=== PATIENT | female | born 1940 | race Caucasian/White ===

== ENCOUNTER 2021-05-11 19:02 | Emergency (ER) | payer MEDICARE, OTHER, SELFPAY ==
[2021-05-11 19:04] VITALS: BP 153/78; PULSE 78; RESP 14; TEMP 36.7; O2SAT 99; BMI 40.5
[2021-05-11 19:06] VITALS: O2SAT 98
--- NOTE | 2021-05-11 19:19 | ED.VIS.DYS ---
HPI History of Present Illness Chief Complaint: Shortness of Breath Narrative Narrative: 81-year-old female presenting with a cough which lasted about 10 minutes and resolved. Patient denies that she choked on anything. She has not had fever, chills, body aches. She feels otherwise well. She felt well prior to the incident. She states she does not have any respiratory issues. She currently denies any chest pain or shortness of breath. PFSH PFSH Home Medications amlodipine 5 mg PO DAILY 06/20/16 [History Last Taken 06/20/16 07:00] aspirin [Adult Low Dose Aspirin EC] 81 mg PO DAILY 06/20/16 [History Last Taken Unknown] atorvastatin [Lipitor] 40 mg PO DAILY 06/20/16 [History Last Taken Unknown] gabapentin 200 mg PO TIDCM 06/20/16 [History Last Taken Unknown] lisinopril 20 mg PO DAILY 06/20/16 [History Last Taken 06/20/16 07:00] metformin 1,000 mg PO BIDCM 06/20/16 [History Last Taken Unknown] cghqyxzg-hsm-swbx fum-folic ac 1 ea PO DAILY 06/20/16 [History Last Taken Unknown] omeprazole 20 mg PO DAILY 06/20/16 [History Last Taken 06/20/16 07:00] oxycodone 5 mg PO Q4H PRN PRN #30 tablet 06/20/16 [Rx Last Taken Unknown] ursodiol 250 mg PO TID 06/20/16 [History Last Taken Unknown] Allergy/AdvReac Type Severity Reaction Status Date / Time acetaminophen [From Vicodin] Allergy Unknown Verified 05/11/21 19:04 hydrocodone [From Vicodin] Allergy Unknown Verified 05/11/21 19:04 sulfamethoxazole Allergy Unknown Verified 05/11/21 19:04 [From Bactrim] trimethoprim [From Bactrim] Allergy Unknown Verified 05/11/21 19:04 Social History Smoking Status: Never smoker ROS ROS ED Constitutional Constitutional ED: Denies chills, fever(s) or sweats Eyes Eyes: Denies blurry vision or change in vision ENT ENT ED: Denies ear pain or sore throat Cardiovascular Cardiovascular: Denies chest pain, palpitations or racing heartbeat Respiratory/Chest Respiratory/Chest: Reports cough and dyspnea; Denies sputum Gastrointestinal Gastrointestinal: Denies abdominal pain, constipation, diarrhea, nausea or vomiting Genitourinary Genitourinary ED: Denies dysuria, hematuria or urinary frequency Musculoskeletal Musculoskeletal: Denies arthralgias, myalgias or neck pain Integumentary Denies abscess, Abrasions or rash Neurologic Neurologic: Denies headache(s), paresthesias or weakness Psychiatric Psychiatric: Denies anxiety, depression, suicidal ideation or suicidal thoughts Endocrine Endocrinology: Denies polydipsia or polyuria EXAM Physical Exam Const Vital Signs: 05/11/21 19:04 05/11/21 19:06 Temperature 98.1 F Temperature Source Temporal Pulse Rate 78 Respiratory Rate 14 Respiratory Effort Normal Non-Labored Respiratory Depth Normal Respiratory Pattern Normal Blood Pressure 153/78 H Blood Pressure Mean 103 Pulse Ox 99 Oxygen Delivery Method Room Air Room Air Positive well nourished General Appearance ED: NAD; Negative for pallor HEENT Reports moist mucous membranes atraumatic Eyes PERRL and EOMs intact bilaterally Neck Neck Narrative: No stridor Resp normal respiratory effort and clear to auscultation bilaterally Cardio regular rate and regular rhythm Neuro oriented x3 Sensorium / Orientation: alert Psych mental status grossly normal Thought Process: normal thought process Skin General Skin Exam: Negative for jaundice or pallor MDM MDM MDM Narrative Medical decision making narrative: Patient had a cough for about 10 minutes. She has not had any symptoms of anything else. She felt well all day today. She feels well now. She states her cough is resolved. She not had any sick contacts. She is been eating and drinking normally. She is making normal urine and stool. Her vital signs are normal. Her physical exam is normal. I believe she is safe to be discharged home without any testing. She is given return precautions for new or worsening symptoms. Impression: 1. Cough?resolved Discharge Plan Triage Chief Complaint: Shortness of Breath ED Provider: Jono Patel Dx/Rx/DC Orders Prescriptions: No Action atorvastatin [Lipitor] 40 MG tablet 40 mg PO DAILY RF: 0 lisinopril 20 MG tablet 20 mg PO DAILY RF: 0 amlodipine 5 MG tablet 5 mg PO DAILY RF: 0 aspirin [Adult Low Dose Aspirin] 81 MG Tablet.Dr 81 mg PO DAILY RF: 0 metformin 1,000 MG tablet 1,000 mg PO BIDCM RF: 0 ursodiol 250 MG tablet 250 mg PO TID RF: 0 omeprazole 20 MG capsule 20 mg PO DAILY RF: 0 gabapentin 100 MG capsule 200 mg PO TIDCM RF: 0 ajyqhodx-axd-xmiv fum-folic ac 1 EACH tablet 1 ea PO DAILY RF: 0 oxycodone 5 MG tablet 5 mg PO Q4H PRN PRN (Reason: Pain) Qty: 30 RF: 0 Primary Care Provider: Princess Lorenzo Referrals: Princess Lorenzo MD [Primary Care Provider] - Activity Restrictions/Additional Instructions: You were seen today for a cough which resolved. Your physical examination was completely normal. Since you otherwise feel well I will send you home. If you have any new or worsening symptoms return to the emergency room Disposition Disposition: Home, Self Care
[2021-05-11 19:37] VITALS: BP 133/60; PULSE 79; RESP 16; O2SAT 98
== END 2021-05-11 19:38 | disposition home or self-care (01) ==
LOC: ED 19:23
PROVIDERS: Emergency Provider Student in an Organized Health Care Education/Training Program; PCP Family Medicine
DX: R05.9 Cough, unspecified (principal)
CPT/HCPCS: 99284

== ENCOUNTER 2021-09-25 12:29 | Emergency (ER) | payer MEDICARE, OTHER, SELFPAY ==
[2021-09-25 12:30] VITALS: BP 161/71; PULSE 80; RESP 18; TEMP 36.5; O2SAT 99; BMI 35.9
--- NOTE | 2021-09-25 12:46 | RAD_ITS ---
STUDY: X-RAY CHEST REASON FOR EXAM: Female, 81 years old. cough TECHNIQUE: Single AP portable view of the chest. COMPARISON: None. FINDINGS: The lungs are clear and expanded. There is no demonstrated pleural abnormality. Normal size heart. Normal mediastinum and savanna. Normal visualized pulmonary arteries. Normal visualized aortic arch and descending thoracic aorta. Normal visualized thoracic spine. Normal visualized ribs, clavicles, and shoulders. There is no demonstrated abnormality of the visualized soft tissue structures of the upper abdomen. RAD/Chest 1 View (Portable) IMPRESSION: Normal x-ray examination of the chest. Electronically Signed: Reinaldo Bonilla MD at 13:31 EDT ,
--- NOTE | 2021-09-25 12:47 | EDS_ITS ---
HPI History of Present Illness Chief Complaint: Cold Sx Detail of Chief Complaint: Cough and congestion for about a month Informant: patient Narrative Narrative: Patient presents to the emergency department complaining of a cough and congestion for about a month. 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 Patient has a follow-up appointment with ENT in 5 days. Patient at times coughs up some yellow sputum. She denies any dyspnea. She denies chest pain. She has had her COVID vaccine and booster. Denies any sick contacts otherwise. She is had no fevers. Prior similar symptoms: Yes PFSH PFSH Home Medications amlodipine 5 mg PO DAILY 06/20/16 [History Last Taken 06/20/16 07:00] aspirin [Adult Low Dose Aspirin EC] 81 mg PO DAILY 06/20/16 [History Last Taken Unknown] atorvastatin [Lipitor] 40 mg PO DAILY 06/20/16 [History Last Taken Unknown] gabapentin 200 mg PO TIDCM 06/20/16 [History Last Taken Unknown] lisinopril 20 mg PO DAILY 06/20/16 [History Last Taken 06/20/16 07:00] metformin 1,000 mg PO BIDCM 06/20/16 [History Last Taken Unknown] pqfmxxcf-efv-slqy fum-folic ac 1 ea PO DAILY 06/20/16 [History Last Taken Unknown] omeprazole 20 mg PO DAILY 06/20/16 [History Last Taken 06/20/16 07:00] oxycodone 5 mg PO Q4H PRN PRN #30 tablet 06/20/16 [Rx Last Taken Unknown] ursodiol 250 mg PO TID 06/20/16 [History Last Taken Unknown] doxycycline monohydrate 100 mg PO BID #20 capsule 09/25/21 [Rx Last Taken Unknown] Allergy/AdvReac Type Severity Reaction Status Date / Time acetaminophen [From Vicodin] Allergy Unknown Verified 09/25/21 12:31 hydrocodone [From Vicodin] Allergy Unknown Verified 09/25/21 12:31 sulfamethoxazole Allergy Unknown Verified 09/25/21 12:31 [From Bactrim] trimethoprim [From Bactrim] Allergy Unknown Verified 09/25/21 12:31 Social History Smoking Status: Never smoker ROS ROS ED Constitutional Constitutional ED: Reports systems reviewed and no addt'l complaints, except as documented; Denies body ache(s), change in weight or chills Eyes Eyes: Denies acute decrease in peripheral vision, change in vision, double vision or loss of vision ENT ENT ED: Reports none; Denies ear pain, lip swelling, loss taste/smell, neck pain, otalgia or sore throat Cardiovascular Cardiovascular: Reports none; Denies abdominal pain, chest pain with activity, leg edema, lightheadedness, palpitations, rapid heart rate or syncope Respiratory/Chest Respiratory/Chest: Reports none, cough and sputum; Denies change in mental status, dry cough, dyspnea, hemoptysis, shortness of breath at rest or shortness of breath with exertion Gastrointestinal Gastrointestinal: Reports none; Denies abdominal pain, change in stool character, diarrhea, hematemesis, hematochezia, melena, rectal bleeding or vomiting Genitourinary Genitourinary ED: Reports none; Denies abdominal discomfort, anuria, dysuria, genital pain or polyuria Musculoskeletal Musculoskeletal: Reports none; Denies arthralgias, back pain, difficulty walking, extremity pain, muscle weakness or myalgias Integumentary Reports none; Denies abscess or rash Neurologic Neurologic: Reports none; Denies abnormal gait, confusion, focal weakness, frequent falls, headache(s), loss of vision, numbness, paresthesias, radicular pain, vertigo or weakness Psychiatric Psychiatric: Reports systems reviewed and no addt'l complaints, except as documented and none; Denies behavioral changes, confusion, difficulty concentrating, hallucinations, suicidal ideation, tactile hallucinations or visual hallucinations Endocrine Endocrinology: Denies none, cold intolerance, excessive sweating, fatigue or heat intolerance Hematologic/Lymphatic Hematologic/Lymphatic: Reports none; Denies anemia, easy bleeding or easy bruising Allergic/Immunologic Allergic/Immunologic ED: Denies as per HPI, none, lip swelling, mouth swelling, throat swelling, tongue swelling or hives EXAM Physical Exam Const Vital Signs: 09/25/21 12:30 09/25/21 13:30 Temperature 97.7 F L Temperature Source Temporal Pulse Rate 80 Respiratory Rate 18 Respiratory Effort Normal Respiratory Depth Normal Respiratory Pattern Normal Blood Pressure 161/71 H Blood Pressure Mean 101 Pulse Ox 99 Oxygen Delivery Method Room Air Room Air Positive well nourished and well developed General Appearance ED: well developed and NAD HEENT Reports TM's clear and moist mucous membranes normocephalic and atraumatic; Negative for trauma or tenderness Tympanic Membrane ED: Yes TM's clear Eyes PERRL and EOMs intact bilaterally General Eye ED: Negative for pale conjunctiva or scleral icterus Neck no lymphadenopathy, supple and no JVD General: Negative for tenderness Chest Wall inspection of chest normal and palpation of chest normal Chest: Negative for tenderness Resp normal respiratory effort and clear to auscultation bilaterally Effort and Inspection: Negative for respiratory distress or pain with movement Auscultation: Negative for rhonchi, wheezes or diminished lung sounds Cardio regular rate, regular rhythm, S1 normal heart sound, S2 normal heart sound and no murmurs Peripheral Pulses: pulses 2+ throughout GI normal to inspection, nondistended, normoactive bowel sounds, soft to palpation, non-tender, non-distended and no masses Back/Spine no CVA tenderness and no thoracic nor lumbar tenderness Extremity normal to inspection General Extremety ED: Negative for edema General Extremity: Negative for edema Neuro oriented x3, CN's II-XII intact bilaterally, no sensory deficits noted and gait normal Sensorium / Orientation: awake, alert, oriented to person, oriented to place and oriented to time Motor Exam: strength 5/5 throughout and strength abnormal Psych mental status grossly normal Skin no rashes or lesions noted and no wounds MDM MDM MDM Narrative Medical decision making narrative: IV line established. Basic labs were unremarkable. BMP was normal. Chest x-ray was unremarkable. At this point I suspect either a viral URI or atypical bronchitis and will cover with doxycycline for 10 days. We will also dispense an albuterol MDI. Advised to follow-up with primary care physician in 5 to 7 days. Patient to return if increasing shortness of breath or condition should worsen anyway. Lab Data Attestation: I reviewed the patient's lab results. Labs: Laboratory Results - last 24 hr 09/25/21 09/25/21 09/25/21 13:29 13:29 13:29 WBC 6.2 RBC 3.92 L Hgb 12.6 Hct 38.0 MCV 96.9 MCH 32.1 H MCHC 33.2 RDW Std Deviation 50.5 H RDW Coeff of Lisa 14.2 Plt Count 311 MPV 9.5 Immature Gran % (Auto) 0.300 Neut % (Auto) 64.4 Lymph % (Auto) 26.1 [place] % (Auto) 5.3 Eos % (Auto) 3.4 Baso % (Auto) 0.5 Absolute Neuts (auto) 4.0 Absolute Lymphs (auto) 1.62 Nucleated RBC % 0 Sodium 135 L Potassium 4.2 Chloride 103 Carbon Dioxide 26.0 Anion Gap 6 BUN 8 Creatinine 1.08 H Estim Creat Clear Calc 33.22 Est GFR (MDRD) Af Amer 62 Est GFR (MDRD) Non-Af 52 L BUN/Creatinine Ratio 7.4 L Glucose 174 H Calcium 10.4 H B-Natriuretic Peptide 29.5 Radiography Chest X-Ray - ED: 1 View Diagnostic Testing: Clinical Impression(s) from Imaging Studies Chest X-Ray 09/25/21 12:46 IMPRESSION: Normal x-ray examination of the chest. Electronically Signed: Reinaldo Bonilla MD at 13:31 EDT , 1 view chest x-ray obtained interpreted by myself as no acute disease process. Radiology in agreement. Discharge Plan Triage Chief Complaint: Cold Sx ED Provider: Stacie Miranda Dx/Rx/DC Orders Clinical Impression: URI, acute Instructions: ED Upper Resp Infec Abx Tx Prescriptions: New doxycycline monohydrate 100 MG capsule 100 mg PO BID Qty: 20 RF: 0 No Action atorvastatin [Lipitor] 40 MG tablet 40 mg PO DAILY RF: 0 lisinopril 20 MG tablet 20 mg PO DAILY RF: 0 amlodipine 5 MG tablet 5 mg PO DAILY RF: 0 aspirin [Adult Low Dose Aspirin] 81 MG tablet,delayed release (DR/EC) 81 mg PO DAILY RF: 0 metformin 1,000 MG tablet 1,000 mg PO BIDCM RF: 0 ursodiol 250 MG tablet 250 mg PO TID RF: 0 omeprazole 20 MG capsule 20 mg PO DAILY RF: 0 gabapentin 100 MG capsule 200 mg PO TIDCM RF: 0 hblcmdqv-wct-gnpv fum-folic ac 1 EACH tablet 1 ea PO DAILY RF: 0 oxycodone 5 MG tablet 5 mg PO Q4H PRN PRN (Reason: Pain) Qty: 30 RF: 0 Primary Care Provider: Haley Montes Referrals: Haley Montes MD [Primary Care Provider] - 5-7 Days Disposition Disposition: Home, Self Care
[2021-09-25 13:30] VITALS: O2SAT 99
[2021-09-25 13:36] LABS: Absolute Lymphocyte Count 1.62 X10^3/uL (0.83-4.51); Basophil# 0.03 X10^3/uL; Basophil% 0.5 % (0-1); Eosinophil# 0.21 X10^3/uL; Eosinophils% 3.4 % (0-5); Hemoglobin 12.6 g/dL (12.0-15.0); Lymphocyte # 1.62 X10^3/ul (0.83-4.51); Lymphocyte % 26.1 % (19-41); Mean Corp Hgb Conc 33.2 g/dL (32-36); Mean Corpuscular Hgb 32.1 pg (27.0-32.0); Mean Corpuscular Volume 96.9 fL (81-99); Mean Platelet Vol. 9.5 fl (6.2-12.0); Monocyte# 0.33 X10^3/uL; Monocyte% 5.3 % (0-10); NRBC Flagged by Analyzer 0 % (0-5); Neutrophil % 64.4 % (47-70); Platelet Count 311 K/mm3 (150-450); RBC Distribution Width CV 14.2 % (11.6-14.6); RBC Distribution Width SD 50.5 fl (35.1-43.9); Red Blood Count 3.92 M/mm3 (4.2-5.4); White Blood Count 6.2 K/mm3 (4.4-11.0)
[2021-09-25 13:52] LABS: Anion Gap 6 (5-15); BUN 8 mg/dL (7-18); BUN/Creat Ratio 7.4 RATIO (10-20); Calcium,Total 10.4 mg/dL (8.5-10.1); Chloride 103 mmol/L (98-107); Creatinine, Serum 1.08 mg/dL (0.55-1.02); EST Glomerular Filtration Rate 52 mL/min (>60); Est Glom Filt Rate - Afr Amer 62 mL/min (>60); Estimated Creatinine Clearance 33.22 ml/min; Glucose 174 mg/dL (74-106); Potassium 4.2 mmol/L (3.5-5.1); Sodium Level 135 mmol/L (136-145)
[2021-09-25 14:05] LABS: BNP,B-Type NATRIURETIC PEPTIDE 29.5 pg/mL (0-100)
== END 2021-09-25 14:27 | disposition home or self-care (01) ==
PROVIDERS: Emergency Provider Emergency Medicine; PCP Internal Medicine Gastroenterology; Visit Provider Emergency Medicine
DX: J06.9 Acute upper respiratory infection, unspecified (principal)
CPT/HCPCS: 71045; 80048; 83880; 85025; 99284; A4216

== ENCOUNTER 2021-09-28 16:08 | Emergency (ER) | payer MEDICARE, OTHER, SELFPAY ==
[2021-09-28 16:09] VITALS: BP 183/76; PULSE 82; RESP 18; TEMP 36.1; O2SAT 96; BMI 36.6
--- NOTE | 2021-09-28 16:36 | EKG12_ITS ---
Test Reason : Blood Pressure : / mmHG Vent. Rate : 075 BPM Atrial Rate : 076 BPM P-R Int : 000 ms QRS Dur : 112 ms QT Int : 386 ms P-R-T Axes : 000 -47 045 degrees QTc Int : 431 ms sinus rhythm Left anterior fascicular block Left ventricular hypertrophy with repolarization abnormality Abnormal ECG Confirmed by PATRICIA ALFREDO, KALEY ([id number]), editor trade journal JIGAR NEGRON ([id number]) on 09/30/2021 7:25:59 AM Referred By: Confirmed By:AMBER GOMEZ MD
--- NOTE | 2021-09-28 16:36 | CT_ITS ---
HISTORY: pain EXAMINATION: CT Abdomen And Pelvis W/ Contrast Injection TECHNIQUE: Helically acquired images were obtained of the abdomen and pelvis following IV contrast. A radiation dose optimization technique was used for this scan. IV Contrast dosage and agent: 100mL Isovue-300 Oral contrast: None. COMPARISON: None FINDINGS: LOWER CHEST: Lung bases are clear. No cardiomegaly or pericardial effusion. LIVER: Homogeneous. No focal mass. GALLBLADDER AND BILIARY TREE: Cholecystectomy. No intra- or extrahepatic biliary ductal dilation. PANCREAS: No focal cystic or solid mass. SPLEEN: Normal size without focal cystic or solid mass. ADRENAL GLANDS: No nodules. KIDNEYS AND URETERS: Normal renal size and position. No hydronephrosis. PERITONEUM: No ascites or free air. BOWEL: Normal appendix. No stomach or bowel distension. Portions of descending colon excluded from [id number], otherwise no known focal inflammatory bowel wall changes. LYMPH NODES: No enlarged mesenteric or retroperitoneal lymph nodes. VESSELS: Aorta is non-dilated. URINARY BLADDER: Unremarkable. REPRODUCTIVE ORGANS: No pelvic masses. ABDOMINAL WALL: No discrete abdominal or pelvic wall hernia. BONES: No acute or aggressive abnormality. CT/Abdomen/Pelvis W IV Cont ONLY IMPRESSION: Portions of descending colon excluded from the field of view, otherwise no acute findings in the abdomen or pelvis. Individualized dose optimization techniques were used for this CT. at 1835 Reported and signed by: Hair Willis MD Electronically Signed: Hair Willis MD at 18:34 EDT ,
[2021-09-28 17:21] LABS: ALB/GLOB Ratio 0.7 RATIO (0.9-2.4); AST(SGOT) 48 U/L (15-37); Alanine Aminotransfer ALT/SGPT 39 U/L (13-56); Albumin, Serum 3.2 g/dL (3.2-5.0); Alkaline Phosphatase 346 U/L (45-117); Anion Gap 8 (5-15); BUN 9 mg/dL (7-18); BUN/Creat Ratio 8.6 RATIO (10-20); Calcium,Total 9.5 mg/dL (8.5-10.1); Chloride 104 mmol/L (98-107); Creatinine, Serum 1.05 mg/dL (0.55-1.02); EST Glomerular Filtration Rate 53 mL/min (>60); Est Glom Filt Rate - Afr Amer 64 mL/min (>60); Estimated Creatinine Clearance 35.67 ml/min; Globulin 4.6 g/dL (2.2-4.2); Glucose 258 mg/dL (74-106); Lipase 112 U/L (73-393); Potassium 3.8 mmol/L (3.5-5.1); Protein, Total 7.8 g/dL (6.4-8.2); Sodium Level 136 mmol/L (136-145)
[2021-09-28 17:25] LABS: Absolute Neutrophil Count 2.7 X10^3/uL (2.0-7.7); Basophil# 0.03 X10^3/uL; Basophil% 0.6 % (0-1); Eosinophil# 0.16 X10^3/uL; Eosinophils% 3.4 % (0-5); Hematocrit 34.8 % (37-47); Hemoglobin 11.6 g/dL (12.0-15.0); Mean Corp Hgb Conc 33.3 g/dL (32-36); Mean Corpuscular Hgb 32.3 pg (27.0-32.0); Mean Corpuscular Volume 96.9 fL (81-99); Mean Platelet Vol. 11.7 fl (6.2-12.0); Monocyte# 0.35 X10^3/uL; Monocyte% 7.5 % (0-10); NRBC Flagged by Analyzer 0 % (0-5); Neutrophil # 2.71 X10^3/uL (2.7-7.7); Neutrophil % 58.3 % (47-70); POSITIVE COUNT YES; Platelet Count 207 K/mm3 (150-450); RBC Distribution Width CV 13.9 % (11.6-14.6); Red Blood Count 3.59 M/mm3 (4.2-5.4); White Blood Count 4.7 K/mm3 (4.4-11.0)
--- NOTE | 2021-09-28 17:28 | EX.ED.DYSGE1 ---
HPI History of Present Illness Chief Complaint: Abd Pain Informant: patient Narrative Narrative: Patient presents with abdominal pain. She states she had a today but when I talked to her more it sounds like she may have been having it for about 2 weeks. Although she was on what sounds like Augmentin and now doxycycline, she states taking this medicine does not change her symptoms. She does not have nausea vomiting. She is eating well. She has normal bowel movements without black blood diarrhea or constipation. Nothing that she can think of makes her abdominal pain better or worse. She points to the area around the umbilicus and may be slightly above. She does not have chest pain or shortness of breath. She does not feel weak or ill or have other complaints. She cannot think of anything that changes this or has caused it. She has had prior cholecystectomy, tubal ligation, ovarian cyst removal with adhesions and then lysis of adhesions. No recent surgeries. PFSH PFSH Home Medications amlodipine 5 mg PO DAILY 06/20/16 [History Last Taken 06/20/16 07:00] aspirin [Adult Low Dose Aspirin EC] 81 mg PO DAILY 06/20/16 [History Last Taken Unknown] atorvastatin [Lipitor] 40 mg PO DAILY 06/20/16 [History Last Taken Unknown] gabapentin 200 mg PO TIDCM 06/20/16 [History Last Taken Unknown] lisinopril 20 mg PO DAILY 06/20/16 [History Last Taken 06/20/16 07:00] metformin 1,000 mg PO BIDCM 06/20/16 [History Last Taken Unknown] urdclqeo-vqs-sjsq fum-folic ac 1 ea PO DAILY 06/20/16 [History Last Taken Unknown] omeprazole 20 mg PO DAILY 06/20/16 [History Last Taken 06/20/16 07:00] oxycodone 5 mg PO Q4H PRN PRN #30 tablet 06/20/16 [Rx Last Taken Unknown] ursodiol 250 mg PO TID 06/20/16 [History Last Taken Unknown] doxycycline monohydrate 100 mg PO BID #20 capsule 09/25/21 [Rx Last Taken Unknown] Allergy/AdvReac Type Severity Reaction Status Date / Time acetaminophen [From Vicodin] Allergy Unknown Verified 09/28/21 16:09 hydrocodone [From Vicodin] Allergy Unknown Verified 09/28/21 16:09 sulfamethoxazole Allergy Unknown Verified 09/28/21 16:09 [From Bactrim] trimethoprim [From Bactrim] Allergy Unknown Verified 09/28/21 16:09 Social History Smoking Status: Never smoker ROS ROS ED Constitutional Constitutional ED: Denies chills or fever(s) ENT ENT ED: Denies rhinorrhea or sore throat Cardiovascular Cardiovascular: Denies chest pain or palpitations Respiratory/Chest Respiratory/Chest: Denies cough or dyspnea Gastrointestinal Gastrointestinal: Reports abdominal pain; Denies constipation, diarrhea, melena, nausea or vomiting Genitourinary Genitourinary ED: Denies dysuria, hematuria or urinary frequency Musculoskeletal Musculoskeletal: Reports back pain and other Details: Patient has some chronic back pain down near the sacrum this not new or different. ; Denies myalgias Integumentary Denies rash Neurologic Neurologic: Denies headache(s) Endocrine Endocrinology: Denies polydipsia or polyuria Allergic/Immunologic Allergic/Immunologic ED: Denies urticaria EXAM Physical Exam Const Vital Signs: 09/28/21 16:09 Temperature 96.9 F L Temperature Source Temporal Pulse Rate 82 Respiratory Rate 18 Blood Pressure 183/76 H Blood Pressure Mean 111 Pulse Ox 96 Oxygen Delivery Method Room Air Positive well nourished, well developed and obese General Appearance ED: well developed and NAD Nutritional Appearance: obese HEENT Negative for trauma Eyes General Eye ED: Negative for pale conjunctiva or scleral icterus Neck no JVD Chest Wall inspection of chest normal Resp normal respiratory effort and clear to auscultation bilaterally Cardio regular rate GI normal to inspection, nondistended, normoactive bowel sounds and non-distended GI Narrative: Patient's exam is quite variable. I do not feel any mass. She has well-healed lower abdominal scar. In the supraumbilical region she occasionally feels mild tenderness but is not consistent. There is no rebound or guarding. Right upper quadrant is not tender. There is no lower abdominal tenderness on either side. Palpation: soft Back/Spine no CVA tenderness Extremity General Extremety ED: Negative for tenderness Neuro Sensorium / Orientation: alert Psych mental status grossly normal Skin no rashes or lesions noted and no wounds MDM MDM MDM Narrative Medical decision making narrative: Patient's CBC shows minimal anemia. Electrolytes show minimal elevation in creatinine. LFTs show a little bump in alk phos but otherwise normal. AST is only 48. Lipase is normal. CT is not showing any acute process. Patient's been having some symptoms for almost 2 weeks. I think this is likely some dyspepsia from her antibiotics. But she is eating and drinking without nausea or vomiting. I think she can continue them. She states Pepto-Bismol helps. I explained she can take this. If she develops vomiting, fevers, worsening pain, blood in the stool or other concerns she should return. Lab Data Attestation: I reviewed the patient's lab results. Labs: Laboratory Results - last 24 hr 09/28/21 09/28/21 16:50 16:50 WBC 4.7 RBC 3.59 L Hgb 11.6 L Hct 34.8 L MCV 96.9 MCH 32.3 H MCHC 33.3 RDW Std Deviation 50.0 H RDW Coeff of Lisa 13.9 Plt Count 207 MPV 11.7 Immature Gran % (Auto) 0.200 Neut % (Auto) 58.3 Lymph % (Auto) 30.0 [place] % (Auto) 7.5 Eos % (Auto) 3.4 Baso % (Auto) 0.6 Absolute Neuts (auto) 2.7 Absolute Lymphs (auto) 1.40 Nucleated RBC % 0 Platelet Estimate ADEQUATE RBC Morphology NORM C+C Sodium 136 Potassium 3.8 Chloride 104 Carbon Dioxide 24.0 Anion Gap 8 BUN 9 Creatinine 1.05 H Estim Creat Clear Calc 35.67 Est GFR (MDRD) Af Amer 64 Est GFR (MDRD) Non-Af 53 L BUN/Creatinine Ratio 8.6 L Glucose 258 H Calcium 9.5 Total Bilirubin 0.30 AST 48 H ALT 39 Alkaline Phosphatase 346 H Total Protein 7.8 Albumin 3.2 Globulin 4.6 H Albumin/Globulin Ratio 0.7 L Lipase 112 Radiography Diagnostic Testing: Clinical Impression(s) from Imaging Studies Abdomen/Pelvis CT 09/28/21 16:36 IMPRESSION: Portions of descending colon excluded from the field of view, otherwise no acute findings in the abdomen or pelvis. Individualized dose optimization techniques were used for this CT. at 1835 Reported and signed by: Hair Willis MD Electronically Signed: Hair Willis MD at 18:34 EDT , EKG Initial EKG: Comments: EKG done due to pain above the umbilicus in an 81-year-old. EKG shows a regular rhythm that was read as accelerated junctional but I think it is sinus with borderline first-degree AV block. There is no sign of acute infarct or ischemia. CT interval was borderline long. QRS duration and QTc are normal. Discharge Plan Triage Chief Complaint: Abd Pain ED Provider: Gerard Quezada Dx/Rx/DC Orders Clinical Impression: Abdominal pain, Adverse effect of antibiotic Instructions: Abdominal Pain Prescriptions: No Action atorvastatin [Lipitor] 40 MG tablet 40 mg PO DAILY RF: 0 lisinopril 20 MG tablet 20 mg PO DAILY RF: 0 amlodipine 5 MG tablet 5 mg PO DAILY RF: 0 aspirin [Adult Low Dose Aspirin] 81 MG tablet,delayed release (DR/EC) 81 mg PO DAILY RF: 0 metformin 1,000 MG tablet 1,000 mg PO BIDCM RF: 0 ursodiol 250 MG tablet 250 mg PO TID RF: 0 omeprazole 20 MG capsule 20 mg PO DAILY RF: 0 gabapentin 100 MG capsule 200 mg PO TIDCM RF: 0 xxrynyhp-ycc-okfy fum-folic ac 1 EACH tablet 1 ea PO DAILY RF: 0 oxycodone 5 MG tablet 5 mg PO Q4H PRN PRN (Reason: Pain) Qty: 30 RF: 0 doxycycline monohydrate 100 MG capsule 100 mg PO BID Qty: 20 RF: 0 Primary Care Provider: Haley Montes Referrals: Haley Montes MD [Primary Care Provider] - 3-5 Days Disposition Disposition: Home, Self Care
[2021-09-28 17:33] LABS: Differential Indicated SCAN CRITERIA MET
[2021-09-28 18:07] LABS: Platelet Estimate ADEQUATE (ADEQ)
[2021-09-28 18:08] LABS: Red Cell Morphology NORM C+C NORMAL (NORM C&C)
== END 2021-09-28 18:56 | disposition home or self-care (01) ==
PROVIDERS: Emergency Provider Emergency Medicine; PCP Internal Medicine Gastroenterology; Visit Provider Emergency Medicine
DX: R10.9 Unspecified abdominal pain (principal); T36.95XA Adverse effect of unspecified systemic antibiotic, initial encounter; E66.9 Obesity, unspecified
CPT/HCPCS: 74177; 80053; 83690; 85025; 93005; 99283; Q9967